=== PATIENT | male | born 1970 | race Caucasian/White ===

== ENCOUNTER 2024-12-21 17:01 | Emergency (ER) | payer OTHER ==
[~2024-12-21] VITALS: Ht 177.8 cm; Wt 102.1 kg
[2024-12-21] MEDS ORDERED: FentaNYL Citrate 50 MCG/ML 2 ML Injection IV ONE (18:40)
[2024-12-21 18:45] VITALS: BP 149/90
[2024-12-21] MEDS ORDERED: Ketamine HCl 100 MG / ML 5ML Vial IV ONE (19:45)
[2024-12-21] MEDS ORDERED: PROPOFOL IV ONE (19:50)
[2024-12-21] MEDS ORDERED: NS 1,000 ML IV SCH (20:20)
[2024-12-21] MEDS ORDERED: Methocarbamol 500 MG Tab PO ONE (21:15)
[2024-12-21] MEDS ORDERED: Robaxin750 MG PO (23:00)
[2024-12-21] MEDS ORDERED: RX Prepack 6 Tabs Oxycodone 5mg UD ONE (23:00)
== END 2024-12-21 23:23 | disposition home or self-care (01) ==
LOC: ER 17:01
DX: S52.571A Other intraarticular fracture of lower end of right radius, initial encounter for closed fracture (principal); S52.691A Other fracture of lower end of right ulna, initial encounter for closed fracture; S82.61XA Displaced fracture of lateral malleolus of right fibula, initial encounter for closed fracture; G89.11 Acute pain due to trauma; V29.99XA Rider (driver) (passenger) of other motorcycle injured in unspecified traffic accident, initial encounter
CPT/HCPCS: 25605; 29515; 71046; 73110; 73200; 73562-RT; 73610; 76000; 96374-59; 99152; 99284-25; A9270; J2704; J3010; J7030

== ENCOUNTER 2024-12-30 06:12 | Day surgery (SDC) | payer OTHER ==
[~2024-12-30] VITALS: Ht 177.8 cm; Wt 100.2 kg
[~2024-12-30 06:12] MED LIST: Lactated Ringer's 1,000 ML IV ONE; Lidocaine 1%-Epineph 1:100000 20 ML MDV ONE; Robaxin750 MG PO; Sodium Bicarb 8.4% 1 MEQ/ML 50 ML Vial ONE
[2024-12-30] MEDS ORDERED: CeFAZolin Sodium 2,000 MG VIAL ONE (06:29)
[2024-12-30] MEDS ORDERED: OXYC5 (06:43)
[2024-12-30] MEDS ORDERED: Lidocaine HCl 2% 10 ML SDA ONE (06:50)
[2024-12-30] MEDS ORDERED: Lactated Ringer's 1,000 ML IV ONE ×2 (06:56→08:57)
[2024-12-30] MEDS ORDERED: propofoL 20 ML IV ONE (06:58)
[2024-12-30] MEDS ORDERED: FentaNYL Citrate 50 MCG/ML 2 ML Injection ONE ×3 (06:59→09:21)
[2024-12-30] MEDS ORDERED: Midazolam HCl 1MG / ML 2ML Vial ONE (07:00)
[2024-12-30] MEDS ORDERED: Ropivacaine 0.5% HCL/PF 5 MG/ML 30ML Vial ONE ×2 (07:06→09:44)
--- NOTE | 2024-12-30 07:38 | NUR ---
12/30/24 0738 Sandra Gayle TIME OUT DONE PRIOR TO NERVE BLOCK WITH LUZMA ALLEN CRNA. PT TOLERATED BLOCK WELL.
[2024-12-30] MEDS ORDERED: Dexamethasone Sod Phos 10 MG/ML 1ML VIAL ONE (07:43)
[2024-12-30] MEDS ORDERED: Ketorolac Tromethamine 30mg Vial ONE (07:43)
[2024-12-30] MEDS ORDERED: Ondansetron HCl 2 MG / ML 2ML Vial ONE (07:43)
--- NOTE | 2024-12-30 09:15 | NUR ---
12/30/24 0915 EDMAR MULLER TITRATED TO 4L NC FROM 6L NC. SATS 95% AT THIS TIME.
[2024-12-30 09:44] VITALS: BP 161/76
--- NOTE | 2024-12-30 09:45 | NUR ---
12/30/24 0945 EDMAR MULLER [id number] anesthesia notified of 08/05 pain, per pt report. Plan to repeat nerve block.
[2024-12-30] MEDS ORDERED: Lidocaine 1%-Epineph 1:100000 20 ML MDV ONE (09:52)
[2024-12-30] MEDS ORDERED: OxyCODONE HCL 5 MG TAB ONE (10:35)
== END 2024-12-30 11:01 | disposition home or self-care (01) ==
LOC: ORSCSDS 06:12
PROVIDERS: Orthopaedic Surgery
PROC: 0PSKXZZ Reposition Right Ulna, External Approach (ICD-10-PCS; principal; 2024-12-30 07:30)
PROC: 0PSH04Z Reposition Right Radius with Internal Fixation Device, Open Approach (ICD-10-PCS; principal; 2024-12-30 07:30)
PROC: 0PSMXZZ Reposition Right Carpal, External Approach (ICD-10-PCS; principal; 2024-12-30 07:30)
DX: S52.571A Other intraarticular fracture of lower end of right radius, initial encounter for closed fracture (principal); S52.201A Unspecified fracture of shaft of right ulna, initial encounter for closed fracture; S62.171A Displaced fracture of trapezium [larger multangular], right wrist, initial encounter for closed fracture; S82.61XA Displaced fracture of lateral malleolus of right fibula, initial encounter for closed fracture; V29.99XA Rider (driver) (passenger) of other motorcycle injured in unspecified traffic accident, initial encounter; Z79.899 Other long term (current) drug therapy; E66.9 Obesity, unspecified; Z68.31 Body mass index [BMI] 31.0-31.9, adult
CPT/HCPCS: A9270; C1713; J0690; J1100; J1885; J2003; J2250; J2405; J2704; J2795; J3010; J7120